=== PATIENT | female | born 1990 | race Asian ===

== ENCOUNTER 2016-07-07 14:17 | Emergency (ER) | payer OTHER ==
--- NOTE | 2016-07-07 15:11 | ED ---
Skin Complaint - HPI Summary HPI Summary: Harjit presents with burn left wrist a week ago. She states that she burned a marshmallow on the dorsal aspect of her left wrist. She states there where blisters present. She has been placing neosporin on it. She denies any fever or spreading redness. She states it is painful if she moves her wrist. She is right handed. - History of Current Complaint Chief Complaint: EDBurnSmokeInh Time Seen by Provider: 07/07/16 14:32 Stated Complaint: BURN ON LT HAND/1WK Pain Intensity: 2 - Allergy/Home Medications Allergies/Adverse Reactions: Allergies Allergy/AdvReac Type Severity Reaction Status Date / Time No Known Allergies Allergy Verified 07/07/16 14:23 PMH/Surg Hx/FS Hx/Imm Hx Endocrine/Hematology History: Denies: Hx Anticoagulant Therapy Respiratory History: Denies: Hx Asthma Infectious Disease History: Denies: Traveled Outside the [place] in Last 30 Days - Family History Known Family History: Negative: Cardiac Disease - Social History Alcohol Use: None Substance Use Type: Reports: None Smoking Status (MU): Never Smoked Tobacco Review of Systems Negative: Fever Negative: Chest Pain Negative: Shortness Of Breath Positive: Other - burn left wrist All Other Systems Reviewed And Are Negative: Yes Physical Exam Triage Information Reviewed: Yes Vital Signs On Initial Exam: Initial Vitals Temp Pulse Resp BP Pulse Ox 98.1 F 86 18 114/54 100 07/07/16 14:20 07/07/16 14:20 07/07/16 14:20 07/07/16 14:20 07/07/16 14:20 Vital Signs Reviewed: Yes Appearance: Positive: Well-Appearing Skin: Positive: Warm, Dry, Other - 3cm by 3cm circular burn present on dorsum of left wrist that appears to be healing well, no surrounding erythema. Head/Face: Positive: Normal Head/Face Inspection Eyes: Positive: Normal, Conjunctiva Clear Respiratory/Lung Sounds: Positive: Clear to Auscultation, Breath Sounds Present Cardiovascular: Positive: Normal, RRR Diagnostics - Vital Signs Vital Signs Temp Pulse Resp BP Pulse Ox 07/07/16 14:20 98.1 F 86 18 114/54 100 - Laboratory Lab Statement: Any lab studies that have been ordered have been reviewed, and results considered in the medical decision making process. Course/Dx - Course Course Of Treatment: Harjit presents [facility] wound check for burn got last week from a marshmellow. has been placing neosporin on it. denies any fever. on exam has healing burn without any sign of infection. will have use bactrician on the wound. patient understands and agrees with plan - Differential Diagnoses - Skin Complaint Differential Diagnoses: Contact Dermatitis, Other - burn, healing wound - Diagnoses Provider Diagnoses: Burn of left wrist Discharge - Discharge Plan Condition: Good Disposition: HOME Patient Education Materials: Second Degree Burn (ED) Referrals: SHRAVAN Phillips [Primary Care Provider] - Additional Instructions: Place bacitracin on area twice a day Keep covered Take Tylenol or ibuprofen for pain every 6 hours as needed Return to ED if develop any spreading redness or fever or any new or worsening symptoms
[2016-07-07] MEDS ORDERED: Mupirocin 2% CREAM* 15 GM TOPICAL ONE (15:12)
[2016-07-07] MEDS ORDERED: Bacitracin OINTMENT* 1 TUBE TOPICAL ONE (15:14)
[2016-07-07 15:25] VITALS: BP 95/51
== END 2016-07-07 15:40 | disposition home or self-care (01) ==
LOC: ED 14:17
DX: T23.272A Burn of second degree of left wrist, initial encounter (principal); X10.1XXA Contact with hot food, initial encounter; Y92.9 Unspecified place or not applicable
CPT/HCPCS: 99282; A9270-GY